=== PATIENT | male | born 2000 | race Caucasian/White ===

== ENCOUNTER 2023-06-25 14:33 | Emergency (ER) | payer SELFPAY ==
[~2023-06-25] VITALS: Ht 180.3 cm; Wt 85.0 kg
[2023-06-25] MEDS ORDERED: LIDOcaine/epinephrine/tetracaine TOPICAL sol 3 ML syringe TOP ONE (15:25)
[2023-06-25] MEDS ORDERED: ibuprofen 200mg tablet PO ONE (15:25)
[2023-06-25] MEDS ORDERED: oxyCODONE/APAP 5-325mg tablet PO ONE (15:25)
--- NOTE | 2023-06-25 16:05 | NUR ---
LET solution applied on patient's wound on face and hands. Patient was also medicated with Percocet and Motrin as ordered
[2023-06-25] MEDS ORDERED: CEPH-585 PO (17:25)
[2023-06-25] MEDS ORDERED: cephalexin 250mg capsule PO ONE (17:25)
[2023-06-25 18:00] VITALS: BP 135/82; PULSE 72; RESP 15; TEMP 96.9; O2SAT 98
== END 2023-06-25 18:03 | disposition home or self-care (01) ==
LOC: ER 14:34
DX: S01.511A Laceration without foreign body of lip, initial encounter (principal); S01.111A Laceration without foreign body of right eyelid and periocular area, initial encounter; S80.811A Abrasion, right lower leg, initial encounter; S60.512A Abrasion of left hand, initial encounter; S60.511A Abrasion of right hand, initial encounter; S10.91XA Abrasion of unspecified part of neck, initial encounter; S00.31XA Abrasion of nose, initial encounter; S09.90XA Unspecified injury of head, initial encounter; M25.562 Pain in left knee; V29.31XA Electric (assisted) bicycle (driver) (passenger) injured in unspecified nontraffic accident, initial encounter; Y93.89 Activity, other specified; Y92.89 Other specified places as the place of occurrence of the external cause; Y99.8 Other external cause status
CPT/HCPCS: 12011; 70450; 70486; 99284; J3490; A6449